=== PATIENT | male | born 1955 | race Caucasian/White ===

== ENCOUNTER 2017-12-14 15:37 | Emergency (ER) | payer SELFPAY ==
[2017-12-14 15:42] VITALS: BP 167/99
--- NOTE | 2017-12-14 15:44 | ER Report ---
History and Physical Time Seen By MD: 15:44 HPI/ROS CHIEF COMPLAINT: Laceration HISTORY OF PRESENT ILLNESS: This is a 62-year-old male who presents to the emergency department for a laceration. Patient states that about 30 minutes prior to arrival a coworker was lowering the forklift blades down and the patient was underneath one of the [place] was hit on the top of the head. Denies loss of consciousness, no C-spine pain. Patient did note there was bleeding to the top of the scalp subsequently decided to come in for further evaluation. Patient denies aches, chills, nausea, vomiting, chest pain or shortness of breath. REVIEW OF SYSTEMS: Respiratory: No cough, no dyspnea. Cardiovascular: No chest pain, no palpitations. Gastrointestinal: No vomiting, no abdominal pain. Musculoskeletal: No back pain. Integumentary: As above. Home Meds No Active Prescriptions or Reported Meds Past Medical/Surgical History Patient has a past medical and surgical history of hypertension. Reviewed Nurses Notes: Yes Constitutional Vital Sign - Last 24 Hours 12/14/17 15:42 Temp 98.0 Pulse 98 Resp 14 B/P (MAP) 167/99 Pulse Ox 93 O2 Delivery Room Air Physical Exam General Appearance: The patient is alert, has no immediate need for airway protection and no current signs of toxicity. Eyes: Pupils equal and round no injection. Respiratory: Chest is non tender, lungs are clear to auscultation. Cardiac: regular rate and rhythm. Gastrointestinal: Abdomen is soft and non tender, no masses, bowel sounds normal. Musculoskeletal: Neck: Neck is supple and non tender. Extremities have full range of motion and are non tender. Skin: Laceration and abrasion to the top of the scalp approximately 2 cm in length. Bleeding controlled. Small amount of adipose tissue noted. No crepitus, depressions or obvious deformities. DIFFERENTIAL DIAGNOSIS: After history and physical exam differential diagnosis was considered for concussion, laceration, skull fracture and cervical spine injury Medical Decision Making ED Course/Re-evaluation ED Course The patient was admitted to room. A history and physical were obtained. Differential diagnoses were considered. The wound on the top of the patient's head was scrubbed and irrigated. There was a 2 cm laceration that was repaired with 3 jason as noted below. Patient tolerated well. Bacitracin was applied to the wound. Patient had no other neuro deficits. Patient was also instructed on monitoring for signs of concussion, infection and returning to the emergency department should he have significant changes in mentation, increased vomiting or any other concerns. Patient expressed understanding at this time and was discharged home. Patient was also instructed to return in about 10 days to have the jason removed. Procedure: Laceration repair. Verbal consent was obtained from the patient. The 2 cm laceration on the scalp. The wound was scrubbed, draped and explored to its base with a gloved finger. There were no deep structures involved, no crepitus or depressions identified. The wound was repaired with 3 jason. The wound repair was simple. The procedure was performed by myself. Decision to Disposition Date: Dec 14, 2017 Decision to Disposition Time: 16:09 Depart Departure Latest Vital Signs Vital Signs Date Time Temp Pulse Resp B/P (MAP) Pulse Ox O2 Delivery O2 Flow Rate FiO2 12/14/17 15:42 98.0 98 14 167/99 93 Room Air Impression: Primary Impression: Head injury Additional Impression: Laceration Condition: Improved Disposition: HOME OR SELF-CARE New Scripts No Active Prescriptions or Reported Meds Patient Instructions: Acute Wound Care (ED), Laceration (ED) Additional Instructions: Drink plenty of water. Get plenty of rest. Keep the wound clean and dry. Apply antibiotic ointment to the wound several times a day. Be sure to monitor the wound for signs of infection, such as redness, swelling and drainage. Return to the emergency department in about 10 days for reevaluation of the wound and possibly have the staple removed at this time. Monitor for signs of concussion such as nausea and persistent vomiting, she did have persistent vomiting be sure to return to the emergency department immediately. Problem Qualifiers Primary Impression: Head injury Encounter type: initial encounter Qualified Codes: S09.90XA - Unspecified injury of head, initial encounter BRENT PATELP-BC Dec 14, 2017 15:44
[2017-12-14] MEDS ORDERED: DIPHTH/TETANUS/ACEL. PERTUSSIS IM ONLY ONE (15:50)
== END 2017-12-14 16:18 | disposition home or self-care (01) ==
LOC: ER 15:43
DX: S01.01XA Laceration without foreign body of scalp, initial encounter (principal)
CPT/HCPCS: 90715; 99283